=== PATIENT | female | born 1940 | race Caucasian/White ===

== ENCOUNTER → 2020-10-06 | Outpatient (CLI) | payer MEDICARE, OTHER ==
[~2020-10-06] MED LIST: AMLO2.5T4 PO; ASPI-1026 PO; BUPR-317 PO; DOXY100T2 PO; LEVO150T11 PO; METO25TA3 PO; SPIR1TAB4 PO
== END | disposition home or self-care (01) ==
LOC: SHCH 13:13
PROVIDERS: ATTEND Internal Medicine Cardiovascular Disease
DX: I65.23 Occlusion and stenosis of bilateral carotid arteries (principal); R09.89 Other specified symptoms and signs involving the circulatory and respiratory systems
CPT/HCPCS: 93880

== ENCOUNTER 2022-01-23 19:22 | Inpatient (IN) | payer MEDICARE, OTHER ==
[~2022-01-23] VITALS: Ht 152.4 cm; Wt 6.8 kg
[2022-01-23 20:46] VITALS: BP 145/72
[2022-01-23] MEDS ORDERED: CLOP75TA32 PO (21:51)
[2022-01-23] MEDS ORDERED: METO-408 PO (21:51)
[2022-01-23] MEDS ORDERED: ROSU10TA28 PO (21:51)
[2022-01-23] MEDS ORDERED: ALPR1TAB7 PO (21:51)
[2022-01-23] MEDS ORDERED: LEVO75TA10 PO (21:51)
[2022-01-23] MEDS ORDERED: AMLO-257 PO (21:51)
[2022-01-23] MEDS ORDERED: PARO-37 PO (21:51)
[2022-01-23] MEDS ORDERED: AMLO2.5T4 PO (21:51)
[2022-01-23] MEDS ORDERED: TRAZ-185 PO (21:51)
[2022-01-23] MEDS ORDERED: TRAZODONE HCL 50 MG TAB PO SCH (22:30)
[2022-01-23] MEDS ORDERED: ALPRAZOLAM 1 MG TAB PO PRN (22:30)
[2022-01-23] MEDS ORDERED: ONDANSETRON 4MG INJ IV PRN (23:00)
[2022-01-23] MEDS ORDERED: ACETAMINOPHEN 325 MG TAB PO PRN ×2 (23:00)
[2022-01-23] MEDS ORDERED: LACTULOSE 20 GM/30 ML UDCUP PO PRN (23:00)
[2022-01-23 23:44] VITALS: BP 142/65
[2022-01-24 04:02] VITALS: BP 120/66
[2022-01-24 04:25] LABS: BASOPHILS % (AUTO) 0.4 % (0.0-5.0); EOSINOPHILS % (AUTO) 1.4 % (0.0-8.0); HEMATOCRIT 36.3 % (36-48); LYMPHOCYTES % (AUTO) 17.4 % (21.0-51.0); MEAN CORPUSCULAR HEMOGLOBIN 31.9 pg (27.0-33.0); MEAN CORPUSCULAR HGB CONC 35.8 g/dL (32.0-36.0); MONOCYTES % (AUTO) 6.7 % (3.0-13.0); NEUTROPHILS % (AUTO) 73.7 % (40.0-77.0); PLATELET COUNT (AUTO) 223 K/uL (130-400); RED BLOOD CELL COUNT(AUTO) 4.08 MIL/uL (4.00-5.50); RED CELL DISTRIBUTION WIDTH 12.5 % (11.0-15.5); WHITE BLOOD COUNT (AUTO) 9.9 K/uL (4.8-10.8)
[2022-01-24 04:47] LABS: INR 0.96 (0.85-1.15); PROTHROMBIN TIME 10.5 SEC (9.6-11.6)
[2022-01-24 04:48] LABS: ALBUMIN 3.8 g/dL (3.5-5.0); CREATININE 1.2 mg/dL (0.5-1.5); POTASSIUM 3.5 mmol/L (3.5-5.1); TOTAL PROTEIN, SERUM 6.9 g/dL (6.0-8.3)
[2022-01-24] MEDS: LEVOTHYROXINE 75 MCG TABLET PO SCH (06:20)
[2022-01-24 07:00] VITALS: BP 113/61
[2022-01-24] MEDS: ASPIRIN 325MG TAB PO SCH (09:23)
[2022-01-24] MEDS: FAMOTIDINE 20MG TAB PO SCH (09:23)
[2022-01-24] MEDS: HYDROCHLOROTHIAZIDE 25 MG TABLET PO SCH (09:24)
[2022-01-24] MEDS: METOPROLOL SUCCINATE 25 MG TAB.SR.24H PO SCH (09:24)
[2022-01-24] MEDS: AMLODIPINE 5 MG TAB PO SCH (09:24)
[2022-01-24] MEDS: CLOPIDOGREL 75MG TAB PO SCH (09:25)
[2022-01-24] MEDS: SPIRONOLACTONE 25 MG TAB PO SCH (09:26)
[2022-01-24] MEDS: PAROXETINE HCL 20 MG TABLET PO SCH ×2 (09:34→20:13)
[2022-01-24 11:00] VITALS: BP 117/55
[2022-01-24 16:00] VITALS: BP 112/64
[2022-01-24] MEDS ORDERED: KCL 20 MEQ ERTAB PO PRN (17:30)
[2022-01-24] MEDS ORDERED: POTASSIUM CHLORIDE 10% ELIXIR 20 MEQ/15 ML UDCUP PO PRN (17:30)
[2022-01-24] MEDS ORDERED: LIDOCAINE HCL-MPF 1% 2ML VIAL IV PRN (17:30)
[2022-01-24] MEDS ORDERED: POTASSIUM CHLORIDE 20MEQ/100ML 100 ML IV PRN (17:30)
[2022-01-24] MEDS ORDERED: KCL 20 MEQ ERTAB PO ONE (17:43)
[2022-01-24 19:51] VITALS: BP 118/55
[2022-01-24] MEDS: ATORVASTATIN 20 MG TABLET PO SCH (20:13)
[2022-01-24] MEDS: AMLODIPINE 2.5 MG TAB PO SCH (20:20)
[2022-01-25] VITALS (12 sets, daily range): BP systolic 93–133; BP diastolic 36–73
[2022-01-25] MEDS: LEVOTHYROXINE 75 MCG TABLET PO SCH (03:26)
[2022-01-25 03:38] LABS: BASOPHILS % (AUTO) 0.3 % (0.0-5.0); EOSINOPHILS % (AUTO) 1.7 % (0.0-8.0); HEMATOCRIT 35.3 % (36-48); LYMPHOCYTES % (AUTO) 18.7 % (21.0-51.0); MEAN CORPUSCULAR HEMOGLOBIN 31.5 pg (27.0-33.0); MEAN CORPUSCULAR HGB CONC 34.8 g/dL (32.0-36.0); MEAN CORPUSCULAR VOLUME 90.5 fL (79-99); MONOCYTES % (AUTO) 7.6 % (3.0-13.0); NEUTROPHILS % (AUTO) 71.3 % (40.0-77.0); PLATELET COUNT (AUTO) 213 K/uL (130-400); RED CELL DISTRIBUTION WIDTH 12.4 % (11.0-15.5); WHITE BLOOD COUNT (AUTO) 9.8 K/uL (4.8-10.8)
[2022-01-25 03:53] LABS: INR 0.99 (0.85-1.15); PROTHROMBIN TIME 10.8 SEC (9.6-11.6)
[2022-01-25 03:55] LABS: PARTIAL THROMBOPLASTIN TIME 28.5 SEC (26.3-35.5)
[2022-01-25 03:56] LABS: CREATININE 1.2 mg/dL (0.5-1.5); POTASSIUM 3.8 mmol/L (3.5-5.1)
[2022-01-25 04:12] LABS: HEMOGLOBIN A1C 5.2 % (4.0-6.0)
[2022-01-25] MEDS: PAROXETINE HCL 20 MG TABLET PO SCH ×2 (07:22→20:34)
[2022-01-25] MEDS: ASPIRIN 325MG TAB PO SCH (07:22)
[2022-01-25] MEDS: AMLODIPINE 5 MG TAB PO SCH (07:22)
[2022-01-25] MEDS: FAMOTIDINE 20MG TAB PO SCH (07:22)
[2022-01-25] MEDS: HYDROCHLOROTHIAZIDE 25 MG TABLET PO SCH (07:22)
[2022-01-25] MEDS: CLOPIDOGREL 75MG TAB PO SCH (07:22)
[2022-01-25] MEDS: SPIRONOLACTONE 25 MG TAB PO SCH (07:22)
[2022-01-25] MEDS: METOPROLOL SUCCINATE 25 MG TAB.SR.24H PO SCH (08:01)
[2022-01-25] MEDS ORDERED: FENTANYL CITRATE PF 50 MCG/1 ML 2ML VIAL ONE ×2 (11:32→16:08)
[2022-01-25] MEDS ORDERED: CEFAZOLIN SODIUM 1 GM VIAL ONE ×3 (11:32→15:43)
[2022-01-25] MEDS ORDERED: SUCCINYLCHOLINE 200MG/10ML SYR ONE (11:34)
[2022-01-25] MEDS ORDERED: PROPOFOL 10 MG/ML 20ML VIAL IV ONE (11:34)
[2022-01-25] MEDS ORDERED: ROCURONIUM BROMIDE 10MG/1ML 5ML VL ONE (11:35)
[2022-01-25] MEDS ORDERED: NEOSTIGMINE 5MG/5ML SYR IV ONE (11:35)
[2022-01-25] MEDS ORDERED: GLYCOPYRROLATE 0.2 MG/ML 5 ML VIAL ONE ×2 (11:35→16:03)
[2022-01-25] MEDS ORDERED: ONDANSETRON 4MG INJ ONE (11:36)
[2022-01-25] MEDS ORDERED: DEXAMETHASONE SOD PHOSPHATE 4 MG/ML 1ML VIAL ONE (11:36)
[2022-01-25] MEDS ORDERED: LIDOCAINE HCL-MPF 1% 2ML VIAL ONE (11:37)
[2022-01-25] MEDS ORDERED: IODIXANOL 320 MG/ML 100 ML VIAL ONE (15:20)
[2022-01-25] MEDS ORDERED: HEPARIN 10,000 UNIT/10ML (1,000 UNIT/ML) VIAL ONE (15:21)
[2022-01-25] MEDS ORDERED: ATROPINE 1MG SYG IVP ONE (16:03)
[2022-01-25] MEDS ORDERED: CEFAZOLIN SODIUM 1 GM VIAL IRRIG ONE (16:45)
[2022-01-25] MEDS ORDERED: ONDANSETRON 4MG INJ IV PRN (17:00)
[2022-01-25] MEDS ORDERED: 0.9%NACL 1000ML 1,000 ML IV SCH (17:00)
[2022-01-25] MEDS ORDERED: TEMAZEPAM 30 MG CAP PO PRN (17:00)
[2022-01-25] MEDS ORDERED: NITROGLYCERIN 50MG/D5W 250ML 250 BOT IV PRN (17:00)
[2022-01-25] MEDS ORDERED: NOREPINEPHRIN 4MG/NS 250ML 250 ML IV PRN (17:00)
[2022-01-25] MEDS ORDERED: ACETAMINOPHEN 325 MG TAB PO PRN (17:00)
[2022-01-25] MEDS ORDERED: HYDROMORPHONE 0.5 MG SYG (0.5MG/0.5ML) IVP PRN ×2 (19:30)
[2022-01-25] MEDS: AMLODIPINE 2.5 MG TAB PO SCH (19:59)
[2022-01-25] MEDS: ATORVASTATIN 20 MG TABLET PO SCH (20:25)
[2022-01-25] MEDS: CEFAZOLIN SODIUM 1 GM VIAL IVPB SCH (23:25)
[2022-01-26] VITALS (20 sets, daily range): BP systolic 97–131; BP diastolic 34–56
[2022-01-26 03:47] LABS: MEAN CORPUSCULAR HEMOGLOBIN 32.5 pg (27.0-33.0); MEAN CORPUSCULAR HGB CONC 35.5 g/dL (32.0-36.0); MEAN CORPUSCULAR VOLUME 91.7 fL (79-99); RED BLOOD CELL COUNT(AUTO) 3.6 MIL/uL (4.00-5.50); RED CELL DISTRIBUTION WIDTH 12.3 % (11.0-15.5); WHITE BLOOD COUNT (AUTO) 19.7 K/uL (4.8-10.8)
[2022-01-26 04:06] LABS: CREATININE 1.1 mg/dL (0.5-1.5)
[2022-01-26] MEDS: LEVOTHYROXINE 75 MCG TABLET PO SCH (04:55)
[2022-01-26] MEDS: PAROXETINE HCL 20 MG TABLET PO SCH (08:15)
[2022-01-26] MEDS: FAMOTIDINE 20MG TAB PO SCH (08:15)
[2022-01-26] MEDS: ASPIRIN 325MG TAB PO SCH (08:15)
[2022-01-26] MEDS: CLOPIDOGREL 75MG TAB PO SCH (08:16)
[2022-01-26] MEDS: SPIRONOLACTONE 25 MG TAB PO SCH (08:16)
[2022-01-26] MEDS: AMLODIPINE 5 MG TAB PO SCH (08:17)
[2022-01-26] MEDS: METOPROLOL SUCCINATE 25 MG TAB.SR.24H PO SCH (08:17)
[2022-01-26] MEDS: CEFAZOLIN SODIUM 1 GM VIAL IVPB SCH (08:18)
[2022-01-26] MEDS ORDERED: HYDROCHLOROTHIAZIDE 25 MG TABLET PO SCH (09:00)
[2022-01-27] MEDS ORDERED: ASPIRIN 81MG CHEW TAB PO SCH (09:00)
== END 2022-01-26 18:00 | disposition left against medical advice (07) | DRG 35 ==
LOC: 2AH 20:23 → 2BH 01-25 17:42 → 2CH 01-25 18:20
PROVIDERS: ADMIT Internal Medicine; ATTEND Internal Medicine
PROC: B3141ZZ Fluoroscopy of Left Common Carotid Artery using Low Osmolar Contrast (ICD-10-PCS; 2022-01-25)
PROC: 037J3DZ Dilation of Left Common Carotid Artery with Intraluminal Device, Percutaneous Approach (ICD-10-PCS; principal; 2022-01-25 16:04)
DX: I65.22 Occlusion and stenosis of left carotid artery (principal); I44.2 Atrioventricular block, complete; E03.9 Hypothyroidism, unspecified; Z95.0 Presence of cardiac pacemaker; Z20.822 Contact with and (suspected) exposure to COVID-19; E78.5 Hyperlipidemia, unspecified; F41.9 Anxiety disorder, unspecified; I12.9 Hypertensive chronic kidney disease with stage 1 through stage 4 chronic kidney disease, or unspecified chronic kidney disease; I25.10 Atherosclerotic heart disease of native coronary artery without angina pectoris; N18.30 Chronic kidney disease, stage 3 unspecified; Z53.29 Procedure and treatment not carried out because of patient's decision for other reasons; Z79.02 Long term (current) use of antithrombotics/antiplatelets; Z79.82 Long term (current) use of aspirin; Z80.7 Family history of other malignant neoplasms of lymphoid, hematopoietic and related tissues; Z86.73 Personal history of transient ischemic attack (TIA), and cerebral infarction without residual deficits; Z90.711 Acquired absence of uterus with remaining cervical stump
CPT/HCPCS: 36415; 37215; 80048; 80053; 80061; 83036; 85025; 85027; 85610; 85730; 87635; C1725; G0378; J0330; J0461; J0690; J1100; J1170; J1644; J2405; J2704; J2710; J3010; J3490; Q9967

== ENCOUNTER 2022-12-27 07:10 | Day surgery (SDC) | payer MEDICARE, OTHER ==
[2022-12-26 09:46] VITALS: BP 140/53; PULSE 61; RESP 16
[2022-12-26 10:45] LABS: BASOPHILS # (AUTO) 0.04 K/uL (0.00-0.20); BASOPHILS % (AUTO) 0.4 % (0.0-5.0); EOSINOPHILS # (AUTO) 0.08 K/uL (0.00-0.70); EOSINOPHILS % (AUTO) 0.7 % (0.0-8.0); HEMATOCRIT 38.7 % (36-48); IMMATURE GRANULOCYTE ABSOLUTE 0.07 K/uL (0-1); LYMPHOCYTES # (AUTO) 1.9 K/uL (1.0-4.8); LYMPHOCYTES % (AUTO) 16.8 % (21.0-51.0); MEAN CORPUSCULAR HEMOGLOBIN 32.6 pg (27.0-33.0); MEAN CORPUSCULAR HGB CONC 34.4 g/dL (32.0-36.0); MEAN CORPUSCULAR VOLUME 94.9 fL (79-99); MONOCYTES # (AUTO) 0.7 K/uL (0.1-1.0); MONOCYTES % (AUTO) 6.5 % (3.0-13.0); NEUTROPHILS # (AUTO) 8.4 K/uL (1.8-7.7); PLATELET COUNT (AUTO) 237 K/uL (130-400); RED BLOOD CELL COUNT(AUTO) 4.08 MIL/uL (4.00-5.50); RED CELL DISTRIBUTION WIDTH 12.3 % (11.0-15.5); WHITE BLOOD COUNT (AUTO) 11.2 K/uL (4.8-10.8)
[2022-12-26 10:49] LABS: CREATININE 1.2 mg/dL (0.5-1.5); POTASSIUM 4.8 mmol/L (3.5-5.1)
[2022-12-26 10:51] LABS: INR < 0.93 (0.85-1.15); PROTHROMBIN TIME 10.3 SEC (9.6-11.6)
[2022-12-26 10:53] LABS: PARTIAL THROMBOPLASTIN TIME 28.3 SEC (26.3-35.5)
[~2022-12-27] VITALS: Ht 149.9 cm; Wt 65.0 kg
[2022-12-27] VITALS (12 sets, daily range): BP systolic 125–173; BP diastolic 49–81; PULSE 61–81; RESP 11–18
[~2022-12-27 07:10] MED LIST changes: +ALPR1TAB7 PO; +AMLO-257 PO; -ASPI-1026 PO; -BUPR-317 PO; +CLOP75TA32 PO; -DOXY100T2 PO; -LEVO150T11 PO; +LEVO75TA10 PO; +METO-408 PO; -METO25TA3 PO; +PARO-37 PO; +ROSU10TA28 PO; -SPIR1TAB4 PO; +TRAZ-185 PO
[2022-12-27] MEDS ORDERED: 0.9%NACL 1000ML 1,000 ML IV ONE (08:03)
[2022-12-27] MEDS ORDERED: MIDAZOLAM HCL 1 MG/ML 2ML VIAL ONE ×3 (08:49→09:56)
[2022-12-27] MEDS ORDERED: LIDOCAINE HCL 1% MDV 50ML VIAL ONE (08:49)
[2022-12-27] MEDS ORDERED: MEPERIDINE-PF 25 MG/ML SYG ONE ×3 (08:49→09:56)
[2022-12-27] MEDS ORDERED: CEFAZOLIN SODIUM 1 GM VIAL ONE ×2 (08:50→13:10)
[2022-12-27] MEDS ORDERED: BUPIVACAINE/PF 0.25% 30ML VIAL IJ ONE (08:50)
[2022-12-27] MEDS ORDERED: THROMBIN-JMI 5000 UNIT/VIAL TP ONE (09:44)
[2022-12-27] MEDS ORDERED: ACETAMINOPHEN WITH CODEINE 1 TAB TAB PO PRN ×2 (10:00)
[2022-12-27] MEDS ORDERED: ONDANSETRON 4MG INJ IV PRN (10:00)
[2022-12-27] MEDS ORDERED: CEFAZOLIN SODIUM 1 GM VIAL IVPB ONE (15:00)
== END 2022-12-27 16:10 | disposition home or self-care (01) ==
LOC: DAH 07:10
PROVIDERS: ATTEND Internal Medicine Cardiovascular Disease
DX: I44.30 Unspecified atrioventricular block (principal); I44.39 Other atrioventricular block; I49.5 Sick sinus syndrome; I25.10 Atherosclerotic heart disease of native coronary artery without angina pectoris; I10 Essential (primary) hypertension; E03.9 Hypothyroidism, unspecified; Z95.0 Presence of cardiac pacemaker; Z80.9 Family history of malignant neoplasm, unspecified; Z82.49 Family history of ischemic heart disease and other diseases of the circulatory system; Z91.048 Other nonmedicinal substance allergy status; Z79.899 Other long term (current) drug therapy; Z79.890 Hormone replacement therapy
CPT/HCPCS: 80048; 85025; 85610; 85730; 36415; 93005; 33229; C2621; J0690 ×2; J7030; J0665; J2250 ×3; J3490 ×2; J2175 ×3; A4215; A4222; A4221; A4663; A4216; A4606; A4223 ×3; 99156; 99157